=== PATIENT | female | born 1970 | race Caucasian/White ===

== ENCOUNTER 2017-07-04 06:56 | Emergency (ER) | payer OTHER ==
[2017-07-04 07:08] VITALS: BP 158/87
[2017-07-04] MEDS ORDERED: Lidocaine 1% 50 ML MDV INJECT ONE (07:29)
[2017-07-04] MEDS ORDERED: Diphtheria,Pertussis(Acell),Tetanus Vaccine 0.5 ML SDV IM ONE (07:29)
--- NOTE | 2017-07-04 07:52 | EDM.PDOC ---
ED HPI GENERAL MEDICAL PROBLEM - General Chief Complaint: Laceration Stated Complaint: RT MIDDLE FINGER LAC Time Seen by Provider: 07/04/17 07:14 Source of Information: Reports: Patient, RN Notes Reviewed - History of Present Illness INITIAL COMMENTS - FREE TEXT/NARRATIVE: 47-year-old female suffered laceration to right distal middle finger at work a short time ago. She states there was a lot of bleeding with the cut. It is mainly why she is come in. It was hard to stop the bleeding. Last tetanus immunization a long time ago. Right 3-Middle finger Pain Score (Numeric/FACES): 5 - Related Data Allergies Allergy/AdvReac Type Severity Reaction Status Date / Time amoxicillin [Amoxicillin] Allergy Cannot Verified 07/04/17 07:11 Remember oxycodone HCl [From Percocet] Allergy Cannot Verified 07/04/17 07:11 Remember Home Meds: Home Meds Budesonide/Formoterol [Symbicort 160-4.5 MCG] 10.2 gm INH BID 07/30/14 [History] Cholecalciferol (Vitamin D3) [Vitamin D3] 50,000 unit PO DAILY 07/30/14 [History ] Hydrochlorothiazide [Hydrochlorothiazide] 12.5 mg PO DAILY 07/30/14 [History] Losartan [Cozaar] 50 mg PO BID 07/30/14 [History] Montelukast Sodium [Singulair] 10 mg PO BEDTIME 07/30/14 [History] Omeprazole [Prilosec] 10 mg PO DAILY 07/30/14 [History] Sertraline HCl [Zoloft] 100 mg PO DAILY 07/30/14 [History] traMADol HCl [Tramadol HCl] 50 mg PO BID 07/30/14 [History] Gabapentin [Neurontin] 100 mg PO TID 05/10/16 [History] LORazepam 0.5 mg PO BEDTIME 05/10/16 [History] Meloxicam 15 mg PO DAILY 07/04/17 [History] Past Medical History Cardiovascular History: Reports: Hypertension Respiratory History: Reports: Asthma Gastrointestinal History: Reports: Hiatal Hernia Musculoskeletal History: Reports: Back Pain, Chronic Psychiatric History: Reports: Anxiety, Depression - Past Surgical History Musculoskeletal Surgical History: Reports: Other (See Below) Other Musculoskeletal Surgeries/Procedures:: right wrist surgery, right foot surgery Social & Family History - Family History Family Medical History: Noncontributory - Tobacco Use Smoking Status *Q: Current Every Day Smoker Years of Tobacco use: 20 Packs/Tins Daily: 0.5 - Caffeine Use Caffeine Use: Reports: Soda - Alcohol Use Days Per Week of Alcohol Use: 0 - Recreational Drug Use Recreational Drug Use: No ED ROS GENERAL - Review of Systems Review Of Systems: See Below Constitutional: Reports: No Symptoms HEENT: Reports: No Symptoms Respiratory: Reports: No Symptoms Cardiovascular: Reports: No Symptoms GI/Abdominal: Denies: Nausea, Vomiting Musculoskeletal: Reports: Other (Laceration injury distal right middle finger) Neurological: Denies: Numbness, Tingling ED EXAM, SKIN/RASH Exam: See Below General Appearance: Alert, No Apparent Distress Head: Atraumatic Respiratory/Chest: No Respiratory Distress Extremities: Other (1.2 cm laceration distal right middle finger with small flap on the 1 end, sharp edges, clean no foreign material seen) Neurological: Alert, Oriented, No Motor/Sensory Deficits ED SKIN PROCEDURES - Laceration/Wound Repair Right Finger Lac/Wound length In cm: 1.2 Appearance: Linear Distal NVT: Neuro & Vascular Intact Local Anesthesia - Lidocaine (Xylocaine): 1% Plain Suture Size: 3-0 # of Sutures: 4 Course - Vital Signs Last Recorded V/S: Last Vital Signs Temp 96.6 F 07/04/17 07:05 Pulse 79 07/04/17 07:05 Resp 16 07/04/17 07:05 BP 158/87 H 07/04/17 07:05 Pulse Ox 92 L 07/04/17 07:05 - Orders/Labs/Meds Orders: Active Orders 24 hr Category Date Time Status Vaccines to be Administered [RC] PER UNIT ROUTINE Care 07/04/17 07:29 Active Meds: Medications Discontinued Medications Generic Name Dose Route Start Last Admin Trade Name Freq PRN Reason Stop Dose Admin Diphtheria/Tetanus/Acell Pertussis 0.5 ml 07/04/17 07:29 07/04/17 07:37 Adacel IM 07/04/17 07:30 0.5 ml .ONCE ONE Administration Lidocaine HCl 50 ml 07/04/17 07:29 07/04/17 07:39 Xylocaine 1% INJECT 07/04/17 07:30 50 ml ONETIME ONE Administration Departure - Departure Time of Disposition: 20:00 Disposition: Home, Self-Care 01 Condition: Fair Clinical Impression: Finger laceration Qualifiers: Encounter type: initial encounter Finger: middle finger Damage to nail status: without damage Foreign body presence: without foreign body Laterality: right Qualified Code(s): S61.212A - Laceration without foreign body of right middle finger without damage to nail, initial encounter - Discharge Information Referrals: Siobhan Waters DO [Primary Care Provider] - Forms: ED Department Discharge Additional Instructions: Laceration care instructions, stitches out in about 10 days, there is no charge if you have those taken out at our [facility], call [phone] for appointment. - My Orders Last 24 Hours: My Active Orders 07/04/17 07:29 Vaccines to be Administered [RC] PER UNIT ROUTINE - Assessment/Plan Last 24 Hours: My Active Orders 07/04/17 07:29 Vaccines to be Administered [RC] PER UNIT ROUTINE
== END 2017-07-04 08:25 | disposition home or self-care (01) ==
LOC: JD.ED 06:56
DX: S61.212A Laceration without foreign body of right middle finger without damage to nail, initial encounter (principal); I10 Essential (primary) hypertension; F17.210 Nicotine dependence, cigarettes, uncomplicated; Z88.1 Allergy status to other antibiotic agents; Z88.8 Allergy status to other drugs, medicaments and biological substances; Z79.899 Other long term (current) drug therapy; Z23 Encounter for immunization; W45.8XXA Other foreign body or object entering through skin, initial encounter
CPT/HCPCS: 12001; 90471; 90715; 99282-25; 99283-25

== ENCOUNTER 2017-07-10 17:01 | Emergency (ER) | payer OTHER ==
[2017-07-10 17:42] VITALS: BP 130/94
--- NOTE | 2017-07-10 19:34 | EDM.PDOC ---
ED HPI GENERAL MEDICAL PROBLEM - General Chief Complaint: ENT Problem Stated Complaint: MOUTH PAIN,THROAT SWELLING Time Seen by Provider: 07/10/17 19:33 Source of Information: Reports: Patient History Limitations: Reports: No Limitations - History of Present Illness INITIAL COMMENTS - FREE TEXT/NARRATIVE: 39-year-old female presents for evaluation and treatment of dental pain. Patient reports that symptoms started on Sunday. She has seen a dentist, Dr. Michaud. she was yesterday and was started on an antibiotic, erythromycin. She states she is very nauseous due to pain. No vomiting. Reports that the pain as a 12 out of 10. Reports difficulty swallowing due to pain. Pain extends from the left mandible into her throat. She also reports a decreased appetite and chills. No fevers. States that she contacted her dentist today and he instructed her to come to the ER. Reports that she is supposed to see dental again next week for further management of this. She states she was told that she has a small abscess. She reports that the crown off and has plans to have a root canal to the tooth. Patient is in a pain contract. She receives tramadol for chronic back pain. Oral/Mouth Pain Score (Numeric/FACES): 10 - Related Data Allergies Allergy/AdvReac Type Severity Reaction Status Date / Time amoxicillin [Amoxicillin] Allergy Cannot Verified 07/04/17 07:11 Remember oxycodone HCl [From Percocet] Allergy Cannot Verified 07/04/17 07:11 Remember Home Meds: Home Meds Budesonide/Formoterol [Symbicort 160-4.5 MCG] 10.2 gm INH BID 07/30/14 [History] Cholecalciferol (Vitamin D3) [Vitamin D3] 50,000 unit PO DAILY 07/30/14 [History ] Hydrochlorothiazide [Hydrochlorothiazide] 12.5 mg PO DAILY 07/30/14 [History] Losartan [Cozaar] 50 mg PO BID 07/30/14 [History] Montelukast Sodium [Singulair] 10 mg PO BEDTIME 07/30/14 [History] Omeprazole [Prilosec] 10 mg PO DAILY 07/30/14 [History] Sertraline HCl [Zoloft] 100 mg PO DAILY 07/30/14 [History] traMADol HCl [Tramadol HCl] 50 mg PO BID 07/30/14 [History] Gabapentin [Neurontin] 100 mg PO TID 05/10/16 [History] LORazepam 0.5 mg PO BEDTIME 05/10/16 [History] Meloxicam 15 mg PO DAILY 07/04/17 [History] Acetaminophen/HYDROcodone [[place] 325-5 MG] 1 tab PO Q6H PRN #15 tablet 07/10/17 [Rx] Past Medical History Cardiovascular History: Reports: Hypertension Respiratory History: Reports: Asthma Gastrointestinal History: Reports: Hiatal Hernia Musculoskeletal History: Reports: Back Pain, Chronic Psychiatric History: Reports: Anxiety, Depression - Past Surgical History Musculoskeletal Surgical History: Reports: Other (See Below) Other Musculoskeletal Surgeries/Procedures:: right wrist surgery, right foot surgery Social & Family History - Family History Family Medical History: Noncontributory - Tobacco Use Smoking Status *Q: Current Every Day Smoker Years of Tobacco use: 20 Packs/Tins Daily: 0.5 - Caffeine Use Caffeine Use: Reports: Soda - Alcohol Use Days Per Week of Alcohol Use: 0 - Recreational Drug Use Recreational Drug Use: No ED ROS ENT - Review of Systems Review Of Systems: See Below Constitutional: Reports: Chills, Malaise, Decreased Appetite. Denies: Fever HEENT: Reports: Dental Pain (left lower molars), Throat Pain. Denies: Ear Pain GI/Abdominal: Reports: Nausea. Denies: Vomiting ED EXAM, ENT - Physical Exam Exam: See Below Exam Limited By: No Limitations General Appearance: Alert, WD/WN, Moderate Distress Eye Exam: Bilateral Eye: Normal Inspection Ears: Normal External Exam, Normal Canal, Hearing Grossly Normal, Normal TMs, Auricular Erythema Nose: Normal Inspection Mouth/Throat: Dental Tenderness, Other (gum regression. Multiple caries present. Significant decay and caries to teeth 19 and 18. Tenderness to these teeth. Surrounding gum swelling and inflammation) Head: Facial Swelling (left mandible) Neck: Normal Inspection, Lymphadenopathy (L) (anterior cervicle) Respiratory/Chest: No Respiratory Distress, Lungs Clear, Normal Breath Sounds Cardiovascular: Normal Peripheral Pulses, Regular Rate, Rhythm, No Murmur Neurological: Alert, Oriented, Normal Cognition Psychiatric: Normal Affect, Normal Mood Skin: Warm, Dry, Normal Color. No: Erythema Course - Vital Signs Last Recorded V/S: Last Vital Signs Temp 37.0 C 07/10/17 17:39 Pulse 99 07/10/17 17:39 Resp 18 02/20/18 17:39 BP 130/94 H 07/10/17 17:39 Pulse Ox 94 L 07/10/17 17:39 - Orders/Labs/Meds Labs: Laboratory Tests 07/10/17 07/10/17 Range/Units 20:07 20:07 WBC 13.10 H (3.98-10.04) K/mm3 RBC 4.75 (3.98-5.22) M/mm3 Hgb 15.1 (11.2-15.7) gm/L Hct 42.3 (34.1-44.9) % MCV 89.1 (79.4-94.8) fl MCH 31.8 (25.6-32.2) pg MCHC 35.7 H (32.2-35.5) g/dl RDW Std Deviation 42.3 (36.4-46.3) fL Plt Count 218 (182-369) K/mm3 MPV 10.1 (9.4-12.3) fl Neutrophils % (Manual) 80 H (40-60) % Band Neutrophils % 0 (0-10) % Lymphocytes % (Manual) 16 L (20-40) % Atypical Lymphs % 0 % Monocytes % (Manual) 4 (2-10) % Eosinophils % (Manual) 0 L (0.7-5.8) % Basophils % (Manual) 0 L (0.1-1.2) Platelet Estimate Adequate Plt Morphology Comment Normal Anisocytosis 1+ slight RBC Morph Comment Not Reportable Sodium 137 (136-145) mEq/L Potassium 3.5 (3.5-5.1) mEq/L Chloride 98 (98-107) mEq/L Carbon Dioxide 26 (21-32) mEq/L Anion Gap 16.5 H (5-15) BUN 7 (7-18) mg/dL Creatinine 0.8 (0.55-1.02) mg/dL Est Cr Clr Drug Dosing TNP Estimated GFR (MDRD) > 60 (>60) mL/min BUN/Creatinine Ratio 8.8 L (14-18) Glucose 131 H (74-106) mg/dL Calcium 9.2 (8.5-10.1) mg/dL Total Bilirubin 1.0 (0.2-1.0) mg/dL AST 16 (15-37) U/L ALT 20 (14-59) U/L Alkaline Phosphatase 80 (46-116) U/L C-Reactive Protein 7.4 H* (<1.0) mg/dL Total Protein 7.8 (6.4-8.2) g/dl Albumin 3.8 (3.4-5.0) g/dl Globulin 4.0 gm/dL Albumin/Globulin Ratio 1.0 (1-2) Meds: Medications Discontinued Medications Generic Name Dose Route Start Last Admin Trade Name Freq PRN Reason Stop Dose Admin Hydromorphone HCl 0.5 mg 07/10/17 19:35 07/10/17 20:02 Dilaudid IVPUSH 07/10/17 19:36 0.5 mg ONETIME ONE Administration Hydromorphone HCl 0.5 mg 07/10/17 21:56 07/10/17 22:11 Dilaudid IVPUSH 07/10/17 21:57 0.5 mg ONETIME ONE Administration Iopamidol 80 ml 07/10/17 20:19 07/10/17 20:42 Isovue-300 (61%) IVPUSH 07/10/17 20:20 80 ml ONETIME ONE Administration Ondansetron HCl 4 mg 07/10/17 19:35 07/10/17 20:01 Zofran IVPUSH 07/10/17 19:36 4 mg ONETIME ONE Administration Sodium Chloride 10 ml 07/10/17 19:35 07/10/17 20:42 Saline Flush FLUSH 10 ml ASDIRECTED PRN Administration Keep Vein Open - Radiology Interpretation Free Text/Narrative:: CT of the sinuses with contrast impression per [facility]: No acute findings. CT Results Date: 07/10/17 - Re-Assessments/Exams Free Text/Narrative Re-Assessment/Exam: 07/10/17 21:51 After my initial evaluation I decided to CT the patient to ensure that she does not have a significant abscess in her neck due to her pain. I reviewed the labs and imaging with the patient. Reports pain improved with the Dilaudid but still present. I do feel that she likely had significant dental infection with her white blood cell count CRP being up. will have her continue on her erythromycin follow-up with her dentist as planned. I will give her something for pain in the meantime. Discharge instructions as documented. Departure - Departure Time of Disposition: 21:58 Disposition: Home, Self-Care 01 Condition: Fair Clinical Impression: Dental abscess - Discharge Information Prescriptions: Acetaminophen/HYDROcodone [[place] 325-5 MG] 1 tab PO Q6H PRN #15 tablet PRN Reason: Pain Instructions: Dental Abscess, [id number] Referrals: Siobhan aWters DO [Primary Care Provider] - Forms: ED Department Discharge Additional Instructions: Continue on the your antibiotic as prescribed. [place] one tablet every 6 hours as needed for severe pain not relieved by Tylenol or Motrin. Do not take more than 4 g of Tylenol from all sources in 1 day. Do not take more than 3200 mg of ibuprofen from all sources in 1 day. [place] is habit-forming, I recommend you take as few of these needed to control your pain. Do not drive or operate machinery within 12 hours of taking [place]. Follow up with your dentist next week as planned. Viscous lidocaine gargle and spit 15 mls every 4-6 hours as needed for pain. Please return to the ER if your symptoms change or worsen.
[2017-07-10] MEDS ORDERED: HYDROmorphone 0.5 MG/0.5 ML SYRINGE IVPUSH ONE ×2 (19:35→21:56)
[2017-07-10] MEDS ORDERED: Ondansetron 4 MG/2 ML SDV IVPUSH ONE (19:35)
[2017-07-10] MEDS: Sodium Chloride 0.9% 10 ML Syringe FLUSH PRN ×2 (20:02→20:42)
[2017-07-10] MEDS ORDERED: Iopamidol 612 MG/ML 100 ML Bottle IVPUSH ONE (20:19)
--- NOTE | 2017-07-11 07:15 | CT ---
CT maxillofacial Technique: Multiple axial sections were obtained from below the mandible superiorly to above the external auditory canals. Intravenous contrast was utilized. Reconstructed coronal and sagittal images were reviewed. Findings: Mandible shows no erosions. No abscess is seen around the mandible. No significant soft tissue swelling is noted. Paranasal sinuses are clear. No adenopathy is seen. Impression: 1. No abnormality is seen on maxillofacial CT. There is specifically no erosions or abscess being seen around the mandible. Diagnostic code #1 Agree with preliminary report issued by [facility] ([facility] preliminary report dictated on 07/10/17, 10:32 PM Central Time)
== END 2017-07-10 22:19 | disposition home or self-care (01) ==
LOC: JD.ED 17:01
DX: K04.7 Periapical abscess without sinus (principal); K02.9 Dental caries, unspecified; F17.210 Nicotine dependence, cigarettes, uncomplicated; I10 Essential (primary) hypertension; F32.9 Major depressive disorder, single episode, unspecified; J45.909 Unspecified asthma, uncomplicated; Z79.899 Other long term (current) drug therapy; Z88.1 Allergy status to other antibiotic agents; Z88.6 Allergy status to analgesic agent
CPT/HCPCS: 36415; 70487; 80053; 85025; 86140; 96374; 96375; 96376; 99283; J1170; J2405; J7050; Q9967

== ENCOUNTER 2017-07-14 06:55 | Emergency (ER) | payer OTHER ==
[2017-07-14] MEDS ORDERED: Sodium Chloride 0.9% 10 ML Syringe FLUSH PRN (07:35)
[2017-07-14] MEDS ORDERED: Ondansetron 4 MG/2 ML SDV IVPUSH ONE (07:36)
[2017-07-14] MEDS ORDERED: Sodium Chloride 0.9% 500 ML IV ONE (07:36)
[2017-07-14] MEDS ORDERED: Morphine 2 MG/ML Syringe IVPUSH ONE ×2 (07:37→09:02)
[2017-07-14] MEDS ORDERED: Clindamycin Phosphate 600 MG in Sodium Chloride 0.9% 100 ML IV ONE (07:39)
--- NOTE | 2017-07-14 08:58 | EDM.PDOC ---
ED HPI GENERAL MEDICAL PROBLEM - General Chief Complaint: ENT Problem Stated Complaint: FACIAL SWELLING FROM DENTAL ISSUE Time Seen by Provider: 07/14/17 07:26 Source of Information: Reports: Patient, RN Notes Reviewed - History of Present Illness INITIAL COMMENTS - FREE TEXT/NARRATIVE: 47-year-old female comes in with left jaw pain and left facial swelling. She began having pain left lower jaw, left lower posterior molar about one week ago. She did see her dentist 5 days ago, started on an antibiotic, she thinks it was erythromycin. She did see her dentist again the next day and then also here to the ED 4 days ago for severe pain left lower jaw and some swelling. Started on hydrocodone pain medication at that time. She initially had a crown removed I believe 4 days ago and then had her left to posterior lower molars extracted 2 days ago. She is here this morning due to continued severe pain left lower jaw. She states her left lower jaw still swollen. She feels like she is having some chills but no definite fever. No throat discomfort. No difficulty swallowing. No difficulty breathing. Left Face Pain Score (Numeric/FACES): 10 - Related Data Allergies Allergy/AdvReac Type Severity Reaction Status Date / Time amoxicillin [Amoxicillin] Allergy Cannot Verified 07/14/17 07:12 Remember oxycodone HCl [From Percocet] Allergy Cannot Verified 07/14/17 07:12 Remember Home Meds: Home Meds Budesonide/Formoterol [Symbicort 160-4.5 MCG] 10.2 gm INH BID 07/30/14 [History] Cholecalciferol (Vitamin D3) [Vitamin D3] 50,000 unit PO DAILY 07/30/14 [History ] Hydrochlorothiazide [Hydrochlorothiazide] 12.5 mg PO DAILY 07/30/14 [History] Losartan [Cozaar] 50 mg PO BID 07/30/14 [History] Montelukast Sodium [Singulair] 10 mg PO BEDTIME 07/30/14 [History] Omeprazole [Prilosec] 10 mg PO DAILY 07/30/14 [History] Sertraline HCl [Zoloft] 100 mg PO DAILY 07/30/14 [History] traMADol HCl [Tramadol HCl] 50 mg PO BID 07/30/14 [History] Gabapentin [Neurontin] 100 mg PO TID 12/21/16 [History] LORazepam 0.5 mg PO BEDTIME 05/10/16 [History] Meloxicam 15 mg PO DAILY 07/04/17 [History] Acetaminophen/HYDROcodone [[place] 325-5 MG] 1 tab PO Q6H PRN #15 tablet 07/10/17 [Rx] Clindamycin HCl 300 mg PO Q8HR #20 capsule 07/14/17 [Rx] Past Medical History HEENT History: Reports: Other (See Below) Other HEENT History: teeth pulled Cardiovascular History: Reports: Hypertension Respiratory History: Reports: Asthma Gastrointestinal History: Reports: Hiatal Hernia Musculoskeletal History: Reports: Back Pain, Chronic Psychiatric History: Reports: Anxiety, Depression - Infectious Disease History Infectious Disease History: Reports: Chicken Pox - Past Surgical History Musculoskeletal Surgical History: Reports: Other (See Below) Other Musculoskeletal Surgeries/Procedures:: right wrist surgery, right foot surgery Social & Family History - Family History Family Medical History: Noncontributory - Tobacco Use Smoking Status *Q: Current Every Day Smoker Years of Tobacco use: 25 Packs/Tins Daily: 1 - Caffeine Use Caffeine Use: Reports: Soda - Alcohol Use Days Per Week of Alcohol Use: 0 - Recreational Drug Use Recreational Drug Use: No ED ROS ENT - Review of Systems Review Of Systems: See Below Constitutional: Denies: Fever, Chills, Diaphoresis HEENT: Denies: Throat Pain Respiratory: Denies: Shortness of Breath Cardiovascular: Denies: Chest Pain GI/Abdominal: Denies: Abdominal Pain, Nausea, Vomiting Musculoskeletal: Reports: No Symptoms Skin: Reports: No Symptoms Neurological: Reports: No Symptoms ED EXAM, ENT - Physical Exam Exam: See Below General Appearance: Moderate Distress Eye Exam: Bilateral Eye: PERRL Ears: Normal External Exam Nose: Normal Inspection Mouth/Throat: Other (There is some swelling of the left lower posterior gloom with extraction site visible, no active bleeding, no drainage). No: Pharyngeal Erythema Head: Facial Tenderness (Left lower posterior jaw on), Other (Mild swelling left lower posterior mandible near the angle) Neck: Supple, Full Range of Motion Respiratory/Chest: No Respiratory Distress, Lungs Clear, Normal Breath Sounds Cardiovascular: Regular Rate, Rhythm Extremities: Normal Inspection, Normal Range of Motion Skin: Warm, Dry, Normal Color Course - Vital Signs Last Recorded V/S: Last Vital Signs Temp 96.1 F 07/14/17 07:05 Pulse 73 07/14/17 09:15 Resp 18 07/14/17 09:15 BP 161/74 H 07/14/17 09:15 Pulse Ox 95 07/14/17 09:15 - Orders/Labs/Meds Orders: Active Orders 24 hr Category Date Time Status Peripheral IV Care [RC] . DIRECTED Care 07/14/17 07:36 Active Sodium Chloride 0.9% [Saline Flush] Med 07/14/17 07:35 Active 10 ml FLUSH ASDIRECTED PRN Peripheral IV Insertion Adult [OM.PC] Stat Oth 07/14/17 07:36 Ordered Medication Orders Sodium Chloride (Saline Flush) 10 ml FLUSH ASDIRECTED PRN PRN Reason: Keep Vein Open Last Admin: 07/14/17 07:50 Dose: 10 ml Meds: Medications Generic Name Dose Route Start Last Admin Trade Name Freq PRN Reason Stop Dose Admin Sodium Chloride 10 ml 07/14/17 07:35 07/14/17 07:50 Saline Flush FLUSH 10 ml ASDIRECTED PRN Administration Keep Vein Open Discontinued Medications Generic Name Dose Route Start Last Admin Trade Name Freq PRN Reason Stop Dose Admin Sodium Chloride 500 mls @ 999 mls/hr 07/14/17 07:36 07/14/17 08:05 Normal Saline IV 07/14/17 08:06 999 mls/hr .BOLUS ONE Administration Clindamycin Phosphate 600 mg/ 104 mls @ 100 mls/hr 07/14/17 07:39 07/14/17 08 :09 Sodium Chloride IV 07/14/17 08:41 100 mls/hr ONETIME ONE Administration Morphine Sulfate 4 mg 07/14/17 07:37 07/14/17 07:58 Morphine IVPUSH 07/14/17 07:38 4 mg ONETIME ONE Administration Morphine Sulfate 4 mg 07/14/17 09:02 07/14/17 09:10 Morphine IVPUSH 07/14/17 09:03 4 mg ONETIME ONE Administration Morphine Sulfate Confirm 07/14/17 09:18 07/14/17 09:52 Morphine Administered 07/14/17 09:19 Not Given Dose 2 mg .ROUTE .STK-MED ONE Ondansetron HCl 4 mg 07/14/17 07:36 07/14/17 07:55 Zofran IVPUSH 07/14/17 07:37 4 mg ONETIME ONE Administration - Re-Assessments/Exams Free Text/Narrative Re-Assessment/Exam: 07/14/17 13:27 Has started on clindamycin. We did give the first dose IV, 600 mg. 07/14/17 13:28. We also did give morphine 4 mg IV. That did give her fairly good relief initially but the pain did start coming back prior to discharge. Additional 4 mg morphine ordered prior to taking the IV out and discharge. Discharge instructions as documented. Departure - Departure Time of Disposition: 08:55 Disposition: Home, Self-Care 01 Condition: Fair Clinical Impression: Facial pain - Discharge Information Prescriptions: Clindamycin HCl 300 mg PO Q8HR #20 capsule Referrals: Siobhan Waters DO [Primary Care Provider] - Forms: ED Department Discharge Additional Instructions: Clindamycin antibiotic 300 mg 3 times daily, you have had your morning dose here in the ED IV. Begin your next dose in 6-8 hours and then again at bedtime. Than continue 3 times daily until gone. Tylenol for mild to moderate discomfort or hydrocodone if needed for more severe pain. Follow up with your dentist if not much better within 3-4 days as expected. - My Orders Last 24 Hours: My Active Orders 07/14/17 07:35 Sodium Chloride 0.9% [Saline Flush] 10 ml FLUSH ASDIRECTED PRN 07/14/17 07:36 Peripheral IV Care [RC] . DIRECTED Peripheral IV Insertion Adult [OM.PC] Stat - Assessment/Plan Last 24 Hours: My Active Orders 07/14/17 07:35 Sodium Chloride 0.9% [Saline Flush] 10 ml FLUSH ASDIRECTED PRN 07/14/17 07:36 Peripheral IV Care [RC] . DIRECTED Peripheral IV Insertion Adult [OM.PC] Stat
[2017-07-14] MEDS ORDERED: Morphine 2 MG/ML Syringe ONE (09:18)
[2017-07-14 09:56] VITALS: BP 161/74
== END 2017-07-14 09:40 | disposition home or self-care (01) ==
LOC: JD.ED 06:55
DX: R68.84 Jaw pain (principal); R51 Headache; K08.89 Other specified disorders of teeth and supporting structures; F17.210 Nicotine dependence, cigarettes, uncomplicated; I10 Essential (primary) hypertension; F41.9 Anxiety disorder, unspecified; F32.9 Major depressive disorder, single episode, unspecified; J45.909 Unspecified asthma, uncomplicated; Z79.899 Other long term (current) drug therapy; Z88.1 Allergy status to other antibiotic agents; Z88.8 Allergy status to other drugs, medicaments and biological substances
CPT/HCPCS: 96365; 96375; 96376; 99283; J2270; J2405; J7030; J7040; J7050; 99284

== ENCOUNTER 2018-02-19 12:39 | Emergency (ER) | payer OTHER ==
[2018-02-19] MEDS ORDERED: Ketorolac 30 MG/ML SDV IM ONE (13:06)
[2018-02-19] MEDS ORDERED: Orphenadrine 100 MG Tab.ER PO ONE (13:08)
--- NOTE | 2018-02-19 13:10 | EDM.PDOC ---
ED HPI GENERAL MEDICAL PROBLEM - General Chief Complaint: Upper Extremity Injury/Pain Stated Complaint: Right Shoulder Pain Time Seen by Provider: 02/19/18 12:44 - History of Present Illness INITIAL COMMENTS - FREE TEXT/NARRATIVE: This is a 48-year-old female accompanied by her presented to the emergency department for an evaluation of right shoulder pain after lifting something heavy this morning. She stated that she has a history of fibromyalgia and has a previous injury to her right shoulder few years ago however has not had any issue or complaining of pain in that shoulder. Earlier this morning when she was lifting heavy box she heard a pop noise from her right shoulder and then having excruciating pain, at that time she rated her pain level was 9 or 10 on a scale of 0-10. Currently she rated her about 6 on a scale of 0-10. She denies any medication use to alleviate pain prior to arrival. Pain is aggravated by active range of motion while no specific contributing factors to her pain. She denies any numbness or tingling, decreased range of motion, or pain with passive range of motion to the right upper extremity. She further denies any neck pain, back pain, chest pain, or shortness of breath. She denies any other concern at this time. Right Shoulder Pain Score (Numeric/FACES): 6 - Related Data Allergies Allergy/AdvReac Type Severity Reaction Status Date / Time amoxicillin [Amoxicillin] Allergy Cannot Verified 02/19/18 13:11 Remember oxycodone HCl [From Percocet] Allergy Cannot Verified 02/19/18 13:11 Remember Home Meds: Home Meds Budesonide/Formoterol [Symbicort 160-4.5 MCG] 10.2 gm INH BID 07/30/14 [History] Cholecalciferol (Vitamin D3) [Vitamin D3] 50,000 unit PO DAILY 07/30/14 [History ] Hydrochlorothiazide 12.5 mg PO DAILY 07/30/14 [History] Losartan [Cozaar] 50 mg PO BID 07/30/14 [History] Montelukast Sodium [Singulair] 10 mg PO BEDTIME 07/30/14 [History] Omeprazole [Prilosec] 10 mg PO DAILY 07/30/14 [History] Sertraline HCl [Zoloft] 100 mg PO DAILY 07/30/14 [History] traMADol HCl [Tramadol HCl] 50 mg PO BID 07/30/14 [History] Gabapentin [Neurontin] 100 mg PO TID 05/10/16 [History] LORazepam 0.5 mg PO BEDTIME 05/10/16 [History] Meloxicam 15 mg PO DAILY 07/04/17 [History] Clindamycin HCl 300 mg PO Q8HR #20 capsule 07/14/17 [Rx] Cyclobenzaprine [Flexeril] 1 tab PO TID PRN #21 tab 02/19/18 [Rx] Cyclobenzaprine [Flexeril] 10 mg PO TID PRN 7 Days #21 tab 02/19/18 [Rx] Past Medical History HEENT History: Reports: Other (See Below) Other HEENT History: teeth pulled Cardiovascular History: Reports: Hypertension Respiratory History: Reports: Asthma Gastrointestinal History: Reports: Hiatal Hernia Musculoskeletal History: Reports: Back Pain, Chronic Psychiatric History: Reports: Anxiety, Depression - Infectious Disease History Infectious Disease History: Reports: Chicken Pox - Past Surgical History Musculoskeletal Surgical History: Reports: Other (See Below) Other Musculoskeletal Surgeries/Procedures:: right wrist surgery, right foot surgery Social & Family History - Family History Family Medical History: Noncontributory - Tobacco Use Smoking Status *Q: Current Every Day Smoker Packs/Tins Daily: 0.5 - Caffeine Use Caffeine Use: Reports: Soda Review of Systems - Review of Systems Review Of Systems: ROS reveals no pertinent complaints other than HPI. ED EXAM, GENERAL - Physical Exam Exam: See Below Exam Limited By: No Limitations General Appearance: Alert, WD/WN, No Apparent Distress Head: Atraumatic, Normocephalic Neck: Normal Inspection, Supple, Non-Tender, Full Range of Motion Respiratory/Chest: No Respiratory Distress, Lungs Clear, Normal Breath Sounds, No Accessory Muscle Use, Chest Non-Tender Cardiovascular: Normal Peripheral Pulses, Regular Rate, Rhythm, No Edema, No Gallop, No JVD, No Murmur, No Rub Extremities: Normal Inspection, Normal Capillary Refill, Other (Right shoulder: Tenderness upon palpation at the subscapular region, diffuse muscle tenderness to palpation around the shoulder, limited range of motion secondary to pain.) Neurological: Alert, Oriented, No Motor/Sensory Deficits Psychiatric: Normal Affect, Normal Mood Skin Exam: Warm, Dry, Intact, Normal Color, No Rash Lymphatic: No Adenopathy Course - Vital Signs Last Recorded V/S: Last Vital Signs Temp 36.4 C 02/19/18 12:55 Pulse 90 02/19/18 12:55 Resp 18 02/19/18 12:55 BP 144/89 H 02/19/18 12:55 Pulse Ox 97 02/19/18 12:55 - Orders/Labs/Meds Meds: Medications Discontinued Medications Generic Name Dose Route Start Last Admin Trade Name Jorgeq PRN Reason Stop Dose Admin Ketorolac Tromethamine 30 mg 02/19/18 13:06 02/19/18 13:16 Toradol IM 02/19/18 13:07 30 mg ONETIME ONE Administration Orphenadrine Citrate 100 mg 02/19/18 13:08 02/19/18 13:18 Norflex PO 02/19/18 13:09 100 mg ONETIME ONE Administration - Re-Assessments/Exams Free Text/Narrative Re-Assessment/Exam: 02/19/18 13:48 At this time, patient is reevaluated. Patient appears to be relaxed and not having any distress. Patient is able to move her right upper extremity with very minimal pain. She also stated that medication for pain was given in the emergency department has helped alleviate her symptoms. Currently she rated her pain level about 2 on a scale of 0-10. Patient is alert and moving her extremity without any significant discomfort. Patient is ready for discharge. Departure - Departure Time of Disposition: 13:50 Disposition: Home, Self-Care 01 Condition: Good Clinical Impression: Right shoulder pain Qualifiers: Chronicity: acute Qualified Code(s): M25.511 - Pain in right shoulder Right shoulder strain Qualifiers: Encounter type: initial encounter Qualified Code(s): S46.911A - Strain of unspecified muscle, fascia and tendon at shoulder and upper arm level, right arm , initial encounter - Discharge Information Prescriptions: Cyclobenzaprine [Flexeril] 10 mg PO TID PRN 7 Days #21 tab PRN Reason: Pain (Moderate 4-6) Cyclobenzaprine [Flexeril] 1 tab PO TID PRN #21 tab PRN Reason: Muscle Spasm Instructions: Shoulder Pain Referrals: Siobhan Waters DO [Primary Care Provider] - 1 Week () Epi Goodwin MD [Physician] - 3 Days (Call Orthopedic surgery for further evaluation in 3-5 days if pain is not getting better) Forms: ED Department Discharge Additional Instructions: Use icepack to the right shoulder and subscapular area multiple times a day as tolerated to alleviate pain and discomfort. Highly advised to use muscle relaxant as needed basis only for muscular skeletal discomfort and instructed to very cautious while operating heavy machinery including driving, was taking muscle relaxant. Patient was understanding of the given instruction agrees to comply.
[2018-02-19 13:11] VITALS: BP 144/89
--- NOTE | 2018-02-19 14:26 | CR ---
Right shoulder: Three views of the right shoulder were obtained. Comparison: No prior shoulder radiograph, previous MRI right shoulder arthrogram on 09/29/13 is available. Glenohumeral and acromioclavicular joints are within normal limits. No fracture or other abnormality is seen. Impression: 1. No abnormality is appreciated on three-view right shoulder study. Diagnostic code #1
== END 2018-02-19 14:24 | disposition home or self-care (01) ==
LOC: JD.ED 12:39
DX: S46.911A Strain of unspecified muscle, fascia and tendon at shoulder and upper arm level, right arm, initial encounter (principal); I10 Essential (primary) hypertension; J45.909 Unspecified asthma, uncomplicated; F17.210 Nicotine dependence, cigarettes, uncomplicated; Z79.899 Other long term (current) drug therapy; X50.0XXA Overexertion from strenuous movement or load, initial encounter
CPT/HCPCS: 73030; 96372; 99283; A9270; J1885; 99284